=== PATIENT | male | born 1945 | race Caucasian/White ===

== ENCOUNTER 2017-03-01 08:27 | Day surgery (SDC) | payer OTHER ==
--- NOTE | ~2017-03-01 | EGD ---
EGD REPORT [facility] [address] [place] [address] NAME: NIKOLAS SHERMAN : [birth year] STATUS : REG [facility] [place], [place] PAT#: [id number] AGE: 71 ADM/REG DATE : 03/01/17 MR#: [id number] REPORT SERV DATE: 03/01/17 DICTATED BY: SHANON MITTAL DATE: 03/01/17 REPORT STATUS : Draft TRANSCRIBED BY: [employer] DATE: 03/01/17 [facility] Patient Name: Nikolas Sherman Date of : 1945 Attending MD: SHANON MITTAL MD Procedure Date No Time: 03/01/2017 Procedure: Colonoscopy Indications: High risk colon cancer surveillance: Personal history of colonic polyps, FH of Colon Cancer - 1st degree relative Referring MD: LIZ MONAHAN MD Medicines: as per anesthesia Complications: No immediate complications. Procedure: Pre-Anesthesia Assessment: - ASA Grade Assessment: II - A patient with mild systemic disease. After I obtained informed consent, the scope was passed under direct vision. Throughout the procedure, the patient's blood pressure, pulse, and oxygen saturations were monitored continuously. The [facility] [id number] was introduced through the anus and advanced to the cecum, identified by appendiceal orifice and ileocecal valve. The colonoscopy was performed without difficulty. The patient tolerated the procedure. The quality of the bowel preparation was adequate to identify polyps. Findings: The perianal and digital rectal examinations were normal. Two sessile polyps were found in the rectum. The polyps were 3 to 8 mm in size. These polyps were removed with a hot snare. Resection and retrieval were complete. A few small and large-mouthed diverticula were found in the sigmoid colon. Impression: - Two 3 to 8 mm polyps in the rectum. Resected and retrieved. - Diverticulosis in the sigmoid colon. Recommendation: - Await pathology results. - Repeat colonoscopy for surveillance based on pathology results. Procedure Code(s): --- Professional --- 12376, Colonoscopy, flexible, proximal to splenic flexure; with removal of tumor(s), polyp(s), or other lesion(s) by snare technique EGD REPORT [facility] [address] [place], [place] [address]. [address] NAME: NIKOLAS SHERMAN : [birth year] STATUS : [facility] – [place], [place] PAT#: [id number] AGE: 71 ADM/REG DATE : 03/01/17 MR#: [id number] REPORT SERV DATE: 03/01/17 DICTATED BY: SHANON MITTAL DATE: 03/01/17 REPORT STATUS : Draft TRANSCRIBED BY: [employer] DATE: 03/01/17 Diagnosis Code(s): --- Professional --- K62.1, Rectal polyp K57.30, Diverticulosis of large intestine without perforation or abscess without bleeding Z86.010, Personal history of colonic polyps Z80.0, Family history of malignant neoplasm of digestive organs CPT copyright 2013 [employer]. All rights reserved. The codes documented in this report are preliminary and upon professional fee coder review may be revised to meet current compliance requirements. SHANON MITTAL MD 03/01/2017 10:45 AM This report has been signed electronically. Number of Addenda: 0 Note Initiated On: 03/01/2017 10:14 AM Scope Withdrawal Time 0 hours 11 minutes 48 seconds [address] [place] [address]
[~2017-03-01 08:27] MED LIST: ASAB PO; FLONASE NAS; MULTIPLE VIT PO; VITAMIN B-121000 MC1 SL
== END 2017-03-01 23:59 | disposition home or self-care (01) ==
LOC: DMU 08:27
PROVIDERS: Internal Medicine Gastroenterology
PROC: 0DBP8ZZ Excision of Rectum, Via Natural or Artificial Opening Endoscopic (ICD-10-PCS; principal; 2017-03-01 10:00)
DX: Z12.11 Encounter for screening for malignant neoplasm of colon (principal); D12.8 Benign neoplasm of rectum; K57.30 Diverticulosis of large intestine without perforation or abscess without bleeding; Z86.010 Personal history of colon polyps; Z80.0 Family history of malignant neoplasm of digestive organs; M48.02 Spinal stenosis, cervical region; Z96.1 Presence of intraocular lens; Z98.890 Other specified postprocedural states; J45.909 Unspecified asthma, uncomplicated; Z98.41 Cataract extraction status, right eye; Z98.42 Cataract extraction status, left eye; Z87.891 Personal history of nicotine dependence; Z79.82 Long term (current) use of aspirin; Z79.51 Long term (current) use of inhaled steroids
CPT/HCPCS: 88305